=== PATIENT | male | born 1995 | race Two or more races ===

== ENCOUNTER 2018-07-06 08:49 | Emergency (ER) | payer OTHER ==
--- NOTE | 2018-07-06 09:02 | EDPHY ---
General Time Seen by Provider: 07/06/18 09:01 Narrative: CLINICAL IMPRESSION: Crush injury left foot, subungual hematoma great toe, 2nd toe and 3rd toe, great toe and 2nd distal phalanx fractures ASSESSMENT/PLAN: Patient is a 23-year-old male with no significant medical history who presents for evaluation of crush injury to his left foot. Patient is not toxic appearing , he is in no distress. Physical examination reveals subungual hematoma of the left great toe through 3rd toe, near complete nail avulsions of great toe through 3rd toe. X-rays revealed distal phalanx fracture of the great toe and 2nd toe. There is no evidence of neurovascular compromise or foreign body. The wounds were not contaminated, tetanus status was updated today. History and physical examination is consistent with crush injury, subungual hematomas of great toe through 3rd toe, near complete nail avulsions to great toes through 3rd toe, open distal phalanx fractures of great toe and 2nd toe. The wounds were irrigated and then repaired as discussed in the procedure note, the patient tolerated this well. The wounds were then dressed and he was placed in a postop shoe. This was work comp, he is present with his employer' s. The patient is well established with [facility] and would like his follow-up to be with them. Patient will call today to schedule an appointment for repeat examination tomorrow for a wound check. Wound care instructions discussed. On repeat examination and prior to discharge the patient is well-appearing, he states that his pain is much improved and is controlled. Return precautions discussed- he will return for increased pain, signs of infection, fever, vomiting, if the wound opens or for any other concerns. Patient verbalizes understanding and are in agreement with plan. Case, results and plan of care discussed with Dr. Brambila. DIFFERENTIAL DIAGNOSIS: Includes but not limited to laceration of tendon or vascular structure, underlying fracture, laceration with retained FB. ED PROCEDURES: Procedure: Regional anesthesia. A digital block was performed anesthesia. The block was performed with combination of 0.5% bupivacaine and 1% lidocaine. A digit block was performed at the left great toe, 2nd and 3rd toes. The patient experienced complete pain relief. The procedure was performed by myself. Laceration Repair Verbal consent obtained by patient. Risks discussed, including but not limited to infection, pain, retained foreign body, need for additional repair, poor cosmetic result, tendon damage, nerve damage, poor wound healing, vascular damage. Alternatives to repair discussed. [place] protocol used to establish correct patient, procedure, equipment, product support specialist, and site. Anesthesia obtained by nerve block. Anesthetized with 0.5% bupivacaine and 1% lidocaine. Patient was prepped and draped in usual sterile fashion. Hemostasis achieved with direct pressure. Wound explored through full range of motion and entire depth of wound probed and visualized with gloved finger. No suspicion for nerve damage, tendon damage, underlying fracture, vascular damage, foreign body, or contamination. Area was cleansed with Shur-Clens and irrigated with sterile saline as per protocol. No foreign body or material removed. Great toe: Patient with near complete nail avulsion, still attached along the lateral edge. Large amount of hematoma irrigated from under the nail, the nail was realigned into anatomical position with good approximation into the nail bed. It was secured with 2 sutures on the lateral aspect, 3.0 nylon. Second toe: Medial nail avulsion and lacerations. This toe also had moderate amount of hematoma under the nail, this was irrigated and the nail was reset cured into the nail bed into anatomical position with good approximation. It was secured with 1 3 0 nylon on the medial aspect. There were 2 separate lacerations along the toe, 1.5 cm laceration on the medial aspect adjacent to the nail which was repaired with 2 interrupted Prolene sutures. There was a 1 cm laceration along the medial aspect adjacent to the nail that was reapproximated with 1 interrupted 5 0 Prolene suture. Third toe: Medial nail partially avulsed, subungual hematoma. The hematoma was evacuated and irrigated, the nail was realigned into the anatomical nail bed and secured with a 3 0 nylon suture. There was a cm laceration lateral to the nail, this was approximated using 1 simple interrupted Prolene suture. Wound care: Clean and dry x 24 hours, gently clean with soap and water, cover with topical antibiotic ointment/bandage. Suture/Staple removal: Lacerations 7 days, approximately 2 weeks for your nail sutures CHIEF COMPLAINT: Crush injury left foot HPI: Patient is a 23-year-old male with no significant medical history who presents to the emergency department after sustaining a crush injury to his left foot and toes. 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 He immediately experienced pain, we took off his boot he noticed nail displacement of the left great toe as well as injury to the 2nd and 3rd toes. He denies any foot pain. He denies any decreased sensation of the toes. He denies any other injury. He is not up-to-date on his tetanus status. PAST MEDICAL HISTORY: Denies Pertinent Past Surgical History: Denies Social History: Denies REVIEW OF SYSTEMS: All other systems negative Constitutional: No fever, no chills Musculoskeletal: No deformity Skin: No rashes. Neurological: No sensory loss or weakness. Extremities: Pain and open wounds to left toes 1-3. PHYSICAL EXAM: General Appearance: Alert, oriented, appropriate for age, cooperative, NAD, well hydrated, non-toxic appearing, VSS, no hypoxia. Neurological: Alert and oriented x 3 Skin: No rashes. Musculoskeletal: Upper Extremities: Intact distal pulses, Full range of motion intact, no tenderness, no ecchymosis or edema Lower Extremities: Right lower extremity unremarkable, intact distal pulses, No edema, No tenderness, No cyanosis, full range of motion intact. Left great toe, 2nd toe and 3rd toe with subungual hematoma. Left great toe with nail displacement at the medial edge. Two point discrimination is intact distally at each toe. Patient has no tenderness to palpation of the MTP joints, nontender in the metatarsal and tarsal region. No calf tenderness bilaterally. MEDICAL DECISION MAKING: Patient was seen independently. Secondary supervising physician at time of evaluation was Dr. Brambila. Diagnosis: Crush injury left foot, subungual hematoma. New, requires workup Summary: See assessment and plan for summary of ED visit Clinical lab tests: Not applicable. Independent visualization of images, tracing, or specimens yes. Decision to obtain medical records or history from someone other than the patient no Review / Summarize previous medical records no Discussed patient with another provider Dr. Brambila. - Diagnostics Imaging Results: Imaging Impressions Toe X-Ray 07/06/18 09:15 Impression: Mildly displaced fracture of the distal phalanx of first and second toe, as above. - History Smoking Status: Never smoked - Objective Vital Signs: Initial Vital Signs Temperature (C) 36.6 C 07/06/18 08:53 Heart Rate 71 07/06/18 08:53 Respiratory Rate 17 07/06/18 08:53 Blood Pressure 132/85 H 07/06/18 08:53 O2 Sat (%) 98 07/06/18 08:53 O2 Delivery Mode Room Air Allergies/Adverse Reactions: No Known Allergies Allergy (Unverified 07/06/18 08:53) Home Medications: Medication Instructions Recorded Cephalexin [Keflex (*)] 500 mg PO Q6H #28 cap 07/06/18 Medications Given: Discontinued Medications Hydrocodone Bitart/Acetaminophen ([place] 5/325) 1 tab PO EDNOW ONE Stop: 07/06/18 09:46 Last Admin: 07/06/18 10:21 Dose: 1 tab Cephalexin HCl (Keflex) 500 mg PO EDNOW ONE PRN Reason: Protocol Stop: 07/06/18 10:51 Last Admin: 07/06/18 11:27 Dose: 500 mg Diphtheria/Tetanus/Acell Pertussis (Boostrix) 0.5 ml IM .ONCE ONE Stop: 07/06/18 09:09 Last Admin: 07/06/18 09:17 Dose: 0.5 ml Departure - Departure Disposition: Home, Routine, Self-Care Clinical Impression: Nail avulsion of toe Qualifiers: Encounter type: initial encounter Qualified Code(s): S91.209A - Unspecified open wound of unspecified toe(s) with damage to nail, initial encounter Laceration of toe of left foot Qualifiers: Encounter type: initial encounter Toe: unspecified toe Damage to nail status: with damage Foreign body presence: without foreign body Qualified Code(s): S91.219A - Laceration without foreign body of unspecified toe(s) with damage to nail, initial encounter Condition: Good Instructions: Laceration (ED), Toe Fracture (ED), Nail Avulsion (ED) Additional Instructions: DISCHARGE INSTRUCTIONS FROM YOUR DOCTOR Thank you for visiting our emergency department today. Please keep in mind that discharge from the emergency department does not mean that there is nothing wrong - it simply means that we have not identified an emergency condition that requires further evaluation or treatment in the hospital. You should always plan to follow up with primary care for re-evaluation of your condition in the next 2-3 days. Please follow-up with [facility] tomorrow for repeat examination. The nail has been reattached on all 3 toes with nylon suture, anticipate removal in about 2 weeks. You did sustain additional lacerations, anticipate suture removal in approximately 7 days. This can be done at your PCP. For pain control: You may take Tylenol, I recommend 500-1000 mg every 6-8 hours as needed. Take with food and a full glass of water. Stop taking if this is upsetting her stomach. Do not exceed 4000 mg in a 24 hr period. You may also take ibuprofen, recommend 400 mg every 6 hr. Take with food and a full glass of water. Stop taking if this upsets her stomach. Do not exceed 2400 mg in a 24 hr period. You were noted to have fractures of the great toe and 2nd toe, you will be on antibiotics prophylactically. People present with illnesses and injuries in different ways, and it is always possible that we have missed something. You may always return for re-evaluation if symptoms worsen or if they are not improving or if you develop new/different symptoms. Again, thank you for choosing our emergency department. We hope that you feel better. Referrals: NONE *PRIMARY CARE P,. [Primary Care Provider] - As per Instructions Prescriptions: Cephalexin [Keflex (*)] 500 mg PO Q6H #28 cap
[2018-07-06] MEDS ORDERED: TDAP ADULT 0.5 ML INJ (BOOSTRIX) IM ONE (09:08)
[2018-07-06] MEDS ORDERED: HYDROCODONE/APAP 5/325 TAB PO ONE (09:45)
[2018-07-06] MEDS ORDERED: CEPHALEXIN 500 MG CAP PO ONE (10:50)
[2018-07-06 13:18] VITALS: BP 118/77
== END 2018-07-06 13:17 | disposition home or self-care (01) ==
PROC: 0HQRXZZ Repair Toe Nail, External Approach (ICD-10-PCS; principal; 2018-07-06)
PROC: 0HQNXZZ Repair Left Foot Skin, External Approach (ICD-10-PCS; 2018-07-06)
DX: S91.212A Laceration without foreign body of left great toe with damage to nail, initial encounter (principal); S91.215A Laceration without foreign body of left lesser toe(s) with damage to nail, initial encounter; S92.532B Displaced fracture of distal phalanx of left lesser toe(s), initial encounter for open fracture; Z23 Encounter for immunization; W23.0XXA Caught, crushed, jammed, or pinched between moving objects, initial encounter; Y99.0 Civilian activity done for income or pay; Y92.69 Other specified industrial and construction area as the place of occurrence of the external cause; Y93.H3 Activity, building and construction